=== PATIENT | female | born 1985 | race Caucasian/White ===

== ENCOUNTER 2018-09-11 03:20 | Inpatient (IN) | payer SELFPAY ==
[~2018-09-11] VITALS: Ht 174 cm; Wt 103.9 kg
[2018-09-11] VITALS (7 sets, daily range): BP systolic 103–131; BP diastolic 53–85; Ht 174 cm; Wt 103.9 kg
[~2018-09-11 03:20] MED LIST: CEP500 PO; CEPH-13 PO; ESOM40CA42 PO; LORA-1456 PO; ONDA4TAB PO; PER PO; [UNRECOGNIZED DRUG - OTHER] PO
[2018-09-11] MEDS ORDERED: FAMOTIDINE(*) 20MG/50ML PREMIX 50 ML IVPB PRN (03:22)
[2018-09-11] MEDS ORDERED: OXYTOCIN 30 UNIT/D5LR 500 ML 500 ML IV PRN (03:22)
[2018-09-11] MEDS ORDERED: LR(*) 1000 ML BAG 1,000 ML IV SCH (03:22)
[2018-09-11] MEDS ORDERED: ceFAZolin(*) 2GM/D5W 50ML 50 ML IVPB PRN (03:22)
[2018-09-11] MEDS ORDERED: METOCLOPRAMIDE 10 MG/2 ML SDV IVP PRN (03:25)
[2018-09-11] MEDS ORDERED: LIDOCAINE/SOD BICARB 8.4% SYR SC PRN (03:25)
[2018-09-11] MEDS ORDERED: TERBUTALINE SULF 1 MG/ML VIAL SC PRN (03:25)
[2018-09-11] MEDS ORDERED: LIDOCAINE 1% LOCAL 300 MG/30ML INJ PRN (03:25)
[2018-09-11] MEDS ORDERED: FLUSH 10 ML SYR IVP PRN (03:25)
[2018-09-11] MEDS ORDERED: fentaNYL CITR 100 MCG/2 ML AMP IVP PRN (03:25)
[2018-09-11] MEDS ORDERED: ONDANSETRON 4 MG/2 ML VIAL IVP PRN (04:10)
[2018-09-11] MEDS ORDERED: ONDANSETRON 4 MG/2 ML VIAL ONE (04:15)
[2018-09-11] MEDS ORDERED: PREN-127 PO (04:16)
[2018-09-11] MEDS ORDERED: ACET-1966 PO (04:16)
[2018-09-11] MEDS ORDERED: DIPH-740 PO (04:16)
[2018-09-11 04:35] LABS: PLATELET COUNT, AUTOMATED 182 K/uL (150-450)
[2018-09-11] MEDS ORDERED: BUPIVACAINE 0.25% MPF INJ EPI PRN (04:35)
[2018-09-11] MEDS ORDERED: EPIDURAL KEYS XX PRN (04:35)
[2018-09-11] MEDS ORDERED: FENTANYL/ROPIVACAINE 100 ML BAG EPI PRN (04:35)
[2018-09-11] MEDS ORDERED: LIDO/EPI 2% MPF 1:200,000 20ML EPI PRN (04:35)
[2018-09-11] MEDS ORDERED: fentaNYL CITR 100 MCG/2 ML AMP IT PRN (04:35)
[2018-09-11] MEDS ORDERED: LIDOCAINE/PF 2% 200MG/10ML AMP 200 MG/10 ML AMPUL EPI PRN (04:35)
--- NOTE | 2018-09-11 05:43 | History & Physical ---
History of Present Illness Age of Patient: 33 : 4 Para or TPAL: 2011 EDC per LMP: Sep 18, 2018 EDC per U/S: Sep 04, 2018 Estimated Gestational Age: 39.0 Chief Complaint Painful contractions History of Present Illness Pt is a 33 y/o @ 39-0/7 weeks gestation by LMP who presents to L&D with a chief complaint of painful contractions. Reports contractions started last night around 5 pm and progressively worsened. Pt reports that her water broke just before 330 this morning. Good movement. No vaginal bleeding. History Patient's Blood Type: A Positive Rubella Status: Immune Group B Strep Screen: Negative Obstetrical History: X 2 last one was 8 years ago SAB X 1 Past Medical History: Vicodin that causes her to be itchy. Frequent UTi's. Allergies: Coded Allergies: No Known Drug Allergies (Verified , 06/12/15) Social History: Denies X 3. FOB=[facility] Rec Home Meds Reported Medications Vits W-Ca,Fe,Fa(<1MG) ( VITAMINS) 1 Each Tablet, 1 EACH PO DAILY, TAB 09/11/18 Acetaminophen (TYLENOL) 325 Mg Tablet, 325 MG PO, TAB 09/11/18 Diphenhydramine Hcl (BENADRYL) 25 Mg Capsule, 25 MG PO Q6-8H, CAPSULE 09/11/18 Discontinued Reported Medications Cephalexin (KEFLEX) 500 Mg Capsule, 500 MG PO Q6H, #28 CAP 06/12/15 Discontinued Scripts Esomeprazole Magnesium (NEXIUM) 40 Mg Capsule.dr, 1 CAP PO QDAY, #14 CAP Prov:ANNEL PIPER MD 05/09/15 Lorazepam (ATIVAN) 1 Mg Tablet, 1 MG PO Q6-8H for Anxiety, #14 Prov:ANNEL PIPER MD 05/09/15 Review of Systems All Systems Reviewed/Normal: Yes, Except as Noted Constitutional: No Fever, No Weight Loss, No Weight Gain, No Chills, No Night Sweats, No Other Neurological: No Syncope, No Confusion, No Weakness, No Dizziness, No Slurred Speech, No Other Eyes: No Vision Change, No Loss of Vision, No Photophobia, No Other ENT: No Hearing Loss, No Sinus Congestion, No Sore Throat, No Ear Ache, No Tinnitus, No Other Cardiovascular: No Chest Pain, No Palpitations, No Orthostatic Hypotension, No Other Respiratory: No Shortness of Breath, No Cough, No Wheezing, No Other Gastrointestinal: No Nausea, No Vomiting, No Diarrhea, No Dysphagia, No Constipation, No Early Satiety, No Hematemesis, No Hematochezia, No Melena, No Abdominal Pain, No Other Genitourinary: No Dysuria, No Hematuria, No Urinary Incontinence, No Other Musculoskeletal: No Pain, No Sprain, No Strain, No Impaired Mobility, No Other Psychiatric: No Depression, No Anxiety, No Other Exam General Exam General Apperance: Alert/Awake/No Acute Distress Neuro: No Gross deficits Eyes: Normal Extraocular Movement & Vison ENT: Normal Cardiovascular: Regular Rate and Rhythm Respiratory: No Respiratory Distress, Clear to Auscultation : Normal Musculoskeletal: No Weakness/Pain Extremities: No Cyanosis,Clubbing or Edema Integumentary: Skin Intact without Lesions or Rash Psychological: Alert & Oriented X3, Appropriate Mood & Affect Vaginal Discharge/Fluid?: Clear Fluid Cervical Dialation: 10 Cervical Effacement (%): 100 Cervical Consistency: Soft Cervical Position: Anterior Station: 0 Presentation: Vertex Uterine Contractions(Q min): 2 Uterine Contraction Strength: Mild UC Resting Tone: Soft Fetus Feeling Movement?: Yes Heart Tone Variabilty: Moderate FHT Accelerations: 15X15 FHT Decelerations: Variable FHT Category: II Medical Decision Making Data Points Result Diagram: 09/11/18 0423 Pre-Admit Course Medical Record Review: Yes VTE Prophylasis: Adult Deep Vein Thrombosis/Pulmonary: No 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 to follow. ANTHONY VANCE DO Sep 11, 2018 05:43
--- NOTE | 2018-09-11 05:48 | OB Delivery Note ---
Delivery Note Vaginal Delivery Type: Spont. Vaginal Delivery Delivery Date: Sep 11, 2018 Delivery Time: 05:19 Estimated Gestational Age(wks): 39.0 Length of Labor Stage I (hrs): 3 Length of Labor Stage II (hrs): .1 Labor Stage III (minutes): 6 Infant Sex: Female Infant Weight (gms): 3570 (7#14oz) [place] Apgars: 1 Minute (7), 5 Minute (9) Repair Needed: Labial (superficial) Estimated Blood Loss: 400 Delivery Complications: Nuchal Cord (X1) Edge Stainer Machine in Attendence: ANTHONY Henriquez DO Sep 11, 2018 05:48
[2018-09-11] MEDS ORDERED: HYDROmorphone HCL 2 MG TAB PO PRN (05:50)
[2018-09-11] MEDS ORDERED: BENZOCAINE 20% 60 ML BTL TP PRN (05:50)
[2018-09-11] MEDS ORDERED: DIPHTH/TETANUS/ACEL. PERTUSSIS IM ONE (05:50)
[2018-09-11] MEDS ORDERED: MEASLES,MUMP,RUBELLA VAC 0.5ML SC ONE (05:50)
[2018-09-11] MEDS ORDERED: MAGNESIUM HYDROXIDE* 30ML UDCP PO PRN (05:50)
[2018-09-11] MEDS ORDERED: LANOLIN OINT 7 GM TUBE TP PRN (05:50)
[2018-09-11] MEDS ORDERED: INFLUENZA VIRUS VAC 0.5ML SYR IM ONLY ONE (05:50)
[2018-09-11] MEDS ORDERED: HYDROCORTISONE 2.5% CR 30GM TB PR PRN (05:50)
[2018-09-11] MEDS ORDERED: GLYCERIN/WITCH HAZEL LEAF 1 PK TOP PRN (05:50)
[2018-09-11] MEDS ORDERED: IBUPROFEN 800 MG TAB PO SCH ×2 (09:00→14:00)
[2018-09-11] MEDS: DOCUSATE CALCIUM 240 MG CAP PO SCH ×2 (09:12→20:58)
--- NOTE | 2018-09-11 11:36 | DELIVERY NOTE ---
DELIVERY DATE: September 11, 2018 SURGEON: John Paul Burnette DO ANESTHESIA: None PREOPERATIVE DIAGNOSIS 1. 33-year-old 4, para 2 012 at 39 and 0/7 weeks gestation. 2. Active labor. POSTOPERATIVE DIAGNOSIS 1. 33-year-old 4, para 2 012 at 39 and 0/7 weeks gestation. 2. Active labor. 3. Delivered PROCEDURE Spontaneous vaginal delivery. FINDINGS Live born female infant at 05:19 with Apgars of 7 and 9, weighing 3,570 grams, 7 lbs. 14 oz., 3 vessel cord, intact placenta over a labial laceration. ESTIMATED BLOOD LOSS 400 cc. PATHOLOGY None. COMPLICATIONS None known. CONDITION Stable times 2, mother and infant to remain in LDRP, counts correct x 2 for all needles, lap, sponge, and instruments. LABOR SUMMARY The patient is a 33-year-old 4, para 2 at 39 and 0/7 weeks gestation, presented to Labor and Delivery with a chief complaint of pain contractions. The patient reports contractions since 5 p.m. last evening, reports contractions are now every 2 minutes and very uncomfortable. Reports water breaking around 3:30 this morning and was noted to be grossly ruptured on exam. On initial cervical exam, the patient was 5 cm, roughly 40 minutes later she was 7 cm and quickly thereafter to complete with a significant urge to push. Once the patient had the urge to push, the delivery team was called and assembled. DELIVERY SUMMARY The patient was placed in the dorsal lithotomy position, prepped and draped in the usual sterile manner. Upon maternal pushing, the infant's head delivered in a controlled manner followed by the anterior shoulder and gentle motion the posterior shoulder, gentle upward motion and the remaining body delivered spontaneously. Mouth and nose were bulb suctioned. The cord was clamped x 2 and cut by the 's father at which time the infant was placed skin to skin on the maternal chest. At this point cord blood gases were obtained. The placenta delivered spontaneously with gentle cord traction. Oxytocin was infused to help with uterine tone. The uterus was massaged until deemed firm. Upon inspection of the perineum, vagina, cervix, and labia it was noted that there was a labial laceration that was superficial and appeared to be hemostatic. It was decided to forgo any repair at this time. The patient was cleaned. The labor bed was reassembled and the mother and were allowed to continue to arthur. MTDD
[2018-09-11] MEDS: ACETAMINOPHEN 325 MG TAB PO PRN ×2 (13:00→19:23)
[2018-09-11] MEDS: IBUPROFEN 800 MG TAB PO SCH (22:04)
[2018-09-12 00:10] VITALS: BP 113/56
[2018-09-12 05:12] VITALS: BP 101/64
[2018-09-12] MEDS: IBUPROFEN 800 MG TAB PO SCH (06:07)
[2018-09-12 07:19] VITALS: BP 110/66
[2018-09-12] MEDS: DOCUSATE CALCIUM 240 MG CAP PO SCH (09:18)
--- NOTE | 2018-09-12 11:39 | OB/GYN Progress Note ---
OB Subjective Progress Notes Subjective Doing good PPD #1. Reports good movement. Minimal lochia. Voiding with out any difficulty. Tolerating po intake. Pain controlled with ibuprofen. GI: NEG Nausea, NEG Vomiting, NEG Flatus, NEG Bowel Movement : Voiding Well, Vaginal Bleeding, Scant Pain: Mild, Tolerating PO Pain Meds Eyes: No Visual Disturbances OB Objective Physical Exam Vital Signs Date Time Temp Pulse Resp B/P (MAP) Pulse Ox O2 Delivery O2 Flow Rate FiO2 09/12/18 07:19 98.1 76 16 110/66 (81) Room Air 09/12/18 05:12 95 Intake and Output 09/12/18 06:59 Intake Total 480 ml Output Total 400 ml Balance 80 ml Intake Oral 480 ml Output Urine Total 400 ml # Voids 1 General Appearance: Alert/Awake/No Acute Distress Neurological: No Gross deficits Eyes: Normal Extraocular Movement & Vison Cardiovascular: Normal Rhythm & Peripheral Pulses, Regular Rate and Rhythm Respiratory: No Respiratory Distress, Clear to Auscultation Abdomen: Soft, Non-Tender, Non-Distended, Fundus Firm Extremities: No Cyanosis,Clubbing or Edema Integumentary: Skin Intact without Lesions or Rash Psychological: Alert & Oriented X3, Appropriate Mood & Affect Result Diagram: 09/12/18 0620 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 Follow up with [facility] in 2- 6 weeks. (2) Active labor at term YANI VANCEJulia GORDON Sep 12, 2018 11:39
[2018-09-12] MEDS ORDERED: IBUP800T37 PO (11:42)
[2018-09-12] MEDS ORDERED: HYDR2TAB74 PO (11:42)
--- NOTE | 2018-09-12 11:44 | OB/GYN Discharge Summary ---
Discharge Summary Reason for Hosp/Final Diag: (1) 39 weeks gestation of (2) Active labor at term Hospital Course & Plan: Pt presented in active labor. Quickly delivered. Pt remained in the hospital for 1 day and desired to be discharged. Pt will follow up with [facility] in 2-6 weeks. Lates Vital Signs Vital Signs Date Time Temp Pulse Resp B/P (MAP) Pulse Ox O2 Delivery O2 Flow Rate FiO2 09/12/18 07:19 98.1 76 16 110/66 (81) Room Air 09/12/18 05:12 95 Weight (Pounds): 229 Result Diagram: 09/12/18619 Condition: Improved Discharge: Home Home Meds Active Scripts Hydromorphone Hcl (DILAUDID) 2 Mg Tablet, 2 MG PO Q6H, #12 TAB 0 Refills Prov:ANTHONY VANCE DO 09/12/18 Reported Medications Vits W-Ca,Fe,Fa(<1MG) ( VITAMINS) 1 Each Tablet, 1 EACH PO DAILY, TAB 09/11/18 Acetaminophen (TYLENOL) 325 Mg Tablet, 325 MG PO, TAB 09/11/18 Diphenhydramine Hcl (BENADRYL) 25 Mg Capsule, 25 MG PO Q6-8H, CAPSULE 09/11/18 Discontinued Reported Medications Cephalexin (KEFLEX) 500 Mg Capsule, 500 MG PO Q6H, #28 CAP 06/12/15 Discontinued Scripts Esomeprazole Magnesium (NEXIUM) 40 Mg Capsule., 1 CAP PO QDAY, #14 CAP Prov:ANNEL PIPER MD 05/09/15 Lorazepam (ATIVAN) 1 Mg Tablet, 1 MG PO Q6-8H for Anxiety, #14 Prov:ANNEL PIPER MD 05/09/15 [facility] [phone], Dr. Kramer [phone] Follow up in: 6 wks PP or PO Discharge Diet: As Tolerates Discharge Activity: No Heavy Lifting x 6 wks, No Heavy Lifting > 10lb, Pelvic Rest Special Instructions: ANTHONY VANCE DO Sep 12, 2018 11:44
== END 2018-09-12 13:40 | disposition home or self-care (01) | DRG 807 ==
LOC: OB 03:20
PROVIDERS: ADMIT Student in an Organized Health Care Education/Training Program; ATTEND Student in an Organized Health Care Education/Training Program
PROC: 10E0XZZ Delivery of Products of Conception, External Approach (ICD-10-PCS; principal; 2018-09-11)
DX: O69.81X0 Labor and delivery complicated by cord around neck, without compression, not applicable or unspecified (principal); Z37.0 Single live birth; O70.0 First degree perineal laceration during delivery; Z3A.39 39 weeks gestation of pregnancy
CPT/HCPCS: 36415; 85025; 85027; 86703; 86850; 86870; 86900; 86901; 86902; 86906; J2405; J2590; J7120